=== PATIENT | female | born 1985 | race African-American/Black ===

== ENCOUNTER 2016-09-29 18:27 | Emergency (ER) | payer SELFPAY ==
[~2016-09-29] VITALS: Ht 152.4 cm; Wt 49.0 kg
[2016-09-29 19:17] VITALS: Ht 152.4 cm; Wt 49.0 kg
[2016-09-29] MEDS ORDERED: IBUP-1542 PO (19:36)
[2016-09-29] MEDS ORDERED: CETI5SOL PO (19:36)
[2016-09-29] MEDS ORDERED: GUAI473L22 PO (19:36)
[2016-09-29] MEDS ORDERED: ALBU8.5H3 INH (19:36)
--- NOTE | 2016-09-29 19:44 | ERD ---
ER Documentation Chief Complaint Date/Time DATE: 09/29/16 TIME: 19:40 Chief Complaint Cough x2 days HPI 31-year-old female presents here in emergency department for cough for 3 days. Patient has been having dry cough, does not cough up any phlegm or blood. Patient doesn't have any shortness breath or wheezing. Patient does not have any fever or chills. Patient's children are also sick with the same symptoms. Patient does not have any chest pain or palpitations. Patient denies any dizziness. ROS All systems reviewed and are negative except as per history of present illness. Medications Home Meds Active Scripts Albuterol Sulfate* (Proair HFA*) 8.5 Gm Hfa.aer.ad, 2 PUFF INH Q4H Y for WHEEZING AND SOB, #1 INHALER Prov:ENEDELIA WEISS NP 09/29/16 Ibuprofen* (Motrin*) 600 Mg Tab, 600 MG PO Q6H Y for PAIN AND OR ELEVATED TEMP, #30 TAB Prov:ENEDELIA WEISS NP 09/29/16 Cetirizine Hcl* (Cetirizine Hcl*) 5 Mg/5 Ml Solution, 10 ML PO DAILY, #4 OZ Prov:ENEDELIA WEISS NP 09/29/16 Guaifenesin-Codeine Phosphate* (Guaifenesin* AC Cough Syrup) 473 Ml Liquid, 5 ML PO Q4H Y for COUGH, #60 ML Prov:ENEDELIA WEISS NP 09/29/16 Allergies Allergies: Coded Allergies: No Known Allergy (Unverified , 09/29/16) PMhx/Soc Medical and Surgical Hx: pt denies Medical Hx, pt denies Surgical Hx History of Surgery: Yes ( section) FmHx Family History: No coronary disease, No diabetes, No other Physical Exam Vitals Vital Signs Date Time Temp Pulse Resp B/P Pulse Ox O2 Delivery O2 Flow Rate FiO2 09/29/16 19:17 98.8 75 20 132/87 99 Physical Exam GENERAL: The patient is well developed and appropriate for usual state of health, in no apparent distress. HEENT: Atraumatic. Ears: Normal tympanic membrane, no erythema or bulging. No ear canal swelling. No ear discharge. Nose: Erythematous nasal turbinates with clear nasal discharge. Throat: oropharynx erythematous with postnasal drip. No tonsillar swelling or tonsillar exudates. No lymphadenopathy. CHEST: Clear to auscultation bilaterally. There are no rales, wheezes or rhonchi. HEART: Regular rate and rhythm. No murmurs, clicks, rubs or gallops. No S3 or S4. ABDOMEN: Soft, nontender and nondistended. Good bowel sounds. No rebound or guarding. No gross peritonitis. No gross organomegaly or masses. No Salazar sign or McBurney point tenderness. BACK: No midline or flank tenderness. EXTREMITIES: Equal pulses bilaterally. There is no peripheral clubbing, cyanosis or edema. No focal swelling or erythema. Full range of motion. Grossly neurovascularly intact. NEURO: Alert and oriented. Cranial nerves 2-12 intact. Motor strength in all 4 extremities with 5/5 strength. Sensation grossly intact. Normal speech and gait. SKIN: There is no apparent rash or petechia. The skin is warm and dry. HEMATOLOGIC AND LYMPHATIC: There is no evidence of excessive bruising or lymphedema. No gross cervical, axillary, or inguinal lymphadenopathy. Procedures/MDM Medical Decision Making: Patient symptoms are most likely consistent with acute bronchitis, which viral in origin. There is low suspicion for Pneumonia at this time since patients lungs sounds are clear, patient O2 saturation is normal and patient doesnt show any respiratory distress. Radiology exam not indicated at this time. There is low suspicion for other cardiopulmonary emergencies at this time such as CHF, Pulmonary Embolism, Pneumothorax, or any other cardiopulmonary emergencies at this time. There is low suspicion for sepsis. Patient appears well and is hemodynamically stable. Fever is controlled with medicines. Disposition: Home. Condition: Stable Prescriptions: Guaifenesin with codeine, Zyrtec, albuterol, ibuprofen Instructions: Patient is advised to take medications as prescribed. Patient is advised to rest. Patient advised to increase fluid intake, do humidifier at home and if possible, do salt water gargles. Patient is advised that if symptoms are worse, shortness of breath, uncontrolled fever, stridor, vomiting, worst signs and symptoms to return to emergency department immediately. Otherwise, patient is advised to follow up with primary doctor in 5-7 days. Departure Diagnosis: Primary Impression: Acute bronchitis Bronchitis organism: unspecified organism Qualified Code: J20.9 - Acute bronchitis, unspecified organism Condition: Stable Patient Instructions: Bronchitis, No Antibiotic (Adult) ENEDELIA WEISS NP Sep 29, 2016 19:43
== END 2016-09-29 19:40 | disposition home or self-care (01) ==
LOC: FTE 18:27 → E/R 19:40
DX: J20.9 Acute bronchitis, unspecified (principal)
CPT/HCPCS: 99283